=== PATIENT | male | born 1960 | race Caucasian/White ===

== ENCOUNTER 2022-08-20 08:42 | Outpatient (CLI) | payer MEDICARE, MEDICAID | END 2022-08-20 08:43 | disposition home or self-care (01) | LOC: CSHWCC 08:42 | PROVIDERS: ATTEND Nurse Practitioner Family | DX: L89.623 Pressure ulcer of left heel, stage 3 (principal); L89.613 Pressure ulcer of right heel, stage 3; L89.323 Pressure ulcer of left buttock, stage 3 | CPT/HCPCS: 11042; 87070; 87205; 97139; G0463; 99203 ==